=== PATIENT | male | born 1950 | race Caucasian/White ===

== ENCOUNTER 2017-10-24 07:30 | Day surgery (SDC) | payer OTHER ==
[~2017-10-24 07:30] MED LIST: ceFAZolin 2 GM/SWFI 2 GM/20 ML SYR IVP ONE
[2017-10-24] MEDS ORDERED: BUPIVACAINE 0.5% 30 ML SDV ONE (07:36)
[2017-10-24] MEDS ORDERED: LR 1,000 ML IV ONE (08:07)
[2017-10-24] MEDS ORDERED: ceFAZolin 2 GM/SWFI 2 GM/20 ML SYR IVP ONE (08:07)
--- NOTE | 2017-10-24 10:24 | PDANEPAE ---
ANE History of Present Illness Patient presents for inguinal hernia repair. ANE Past Medical History - Cardiovascular History Hx Hypertension: Yes Hx Coronary Artery / Peripheral Vascular Disease: Yes Cardiovascular History Comment: HYPERLIPIDEMIA. CABG 01/2016 - Pulmonary History Hx COPD: No Hx Asthma/Reactive Airway Disease: No Hx Recent Upper Respiratory Infection: No Hx Oxygen in Use at Home: No Hx Sleep Apnea: No Sleep Apnea Screening Result - Last Documented: Negative - Neurologic History Hx Cerebrovascular Accident: No Hx Seizures: No Hx Dementia: No - Endocrine History Hx Diabetes: No - Renal History Hx Renal Disorders: No - Liver History Hx Hepatic Disorders: No - Neurological & Psychiatric Hx Hx Neurological and Psychiatric Disorders: No - Cancer History Hx Cancer: No - Congenital Disorder History Hx Congenital Disorders: No - GI History Hx Gastrointestinal Disorders: No - Other Health History Other Health History: NEG - Chronic Pain History Chronic Pain: Yes (ARTHRITIS L KNEE) - Surgical History Prior Surgeries: CABG 01/2016. HERNIA ANE Review of Systems Review of Systems: - Exercise capacity METS (RN): 5 METS ANE Patient History - Allergies Allergies/Adverse Reactions: sulfamethoxazole [From Bactrim] Allergy (Verified 10/24/17 08:20) trimethoprim [From Bactrim] Allergy (Verified 10/24/17 08:20) - Home Medications Home Medications: Aspirin [Aspirin 81mg (*)] 81 mg PO DAILY 01/26/16 [Last Taken 10/19/17] Gabapentin [Neurontin 300 MG (*)] 300 mg PO HS PRN 01/26/16 [Last Taken 10/22/17 ] Herbals/Supplements -Info Only 1 ea PO DAILY 01/26/16 [Last Taken 10/23/17] Lisinopril 10/17/17 [Last Taken 10/21/17] - NPO status NPO Since - Liquids (Date): 10/23/17 NPO Since - Liquids (Time): 22:30 NPO Since - Solids (Date): 10/23/17 NPO Since - Solids (Time): 22:30 - Smoking Hx Smoking Status: Never smoked - Family Anes Hx Family Hx Anesthesia Complications: NEG ANE Labs/Vital Signs - Vital Signs Blood Pressure: 145/65 Heart Rate: 65 Respiratory Rate: 17 O2 Sat (%): 95 Height: 187.96 cm Weight: 83.915 kg ANE Physical Exam - Airway Mallampati Score: Class 2 Mouth exam: normal dental/mouth exam - Pulmonary Pulmonary: no respiratory distress - Cardiovascular Cardiovascular: regular rate and rhythym - ASA Status ASA Status: III ANE Anesthesia Plan Anesthesia Plan: general endotracheal anesthesia (rba discussed)
[2017-10-24] MEDS ORDERED: fentaNYL 100 MCG/2 ML INJ ONE ×2 (10:35→11:08)
[2017-10-24] MEDS ORDERED: PROPOFOL 200 MG/20 ML VIAL ONE ×2 (10:35→11:02)
[2017-10-24] MEDS ORDERED: SUCCINYLCHOLINE CHLORIDE 200 MG/10 ML SYR IVP ONE (10:35)
[2017-10-24] MEDS ORDERED: LIDOCAINE 2% 5 ML SDV ONE (10:35)
--- NOTE | 2017-10-24 10:39 | PDHPUP ---
History & Physical Update H&P update statement: This history and physical update is based on an assessment of the patient which was completed after admission or registration (within 24 hours), but prior to the surgery/procedure.
[2017-10-24] MEDS ORDERED: DEXAMETHASONE 4 MG/ML VIAL ONE (10:58)
[2017-10-24] MEDS ORDERED: ATROPINE SULFATE 1 MG/ML VIAL ONE (11:19)
--- NOTE | 2017-10-24 12:00 | POSTOPPROG ---
Post Op Note Date of Operation: 10/24/17 Surgeon: Daniel Vázquez Anesthesiologist: jesika Anesthesia: GET(General Endotracheal) Pre-op Diagnosis: recurrent lih and rih, small umbilical hernia Post-op Diagnosis: same Indication: pain Procedure: lap bih, recurrent left/ open umbilical hernia repair Findings: bilateral direct ingunal hernias, recurrent left/ small 1 cm umbilical defe Inf/Abcess present in the surg proc area at time of surgery?: No Depth: Organ Space EBL: Minimal Complications: 0
[2017-10-24] MEDS ORDERED: ONDANSETRON 4 MG/2 ML VIAL IVP PRN ×2 (12:01→12:07)
[2017-10-24] MEDS ORDERED: OXYCODONE/APAP 5/325 TAB PO PRN ×2 (12:01→12:07)
[2017-10-24] MEDS ORDERED: fentaNYL 100 MCG/2 ML INJ IVP PRN (12:07)
[2017-10-24] MEDS ORDERED: HYDROCODONE/APAP 5/325 TAB PO PRN (12:07)
[2017-10-24] MEDS ORDERED: LR 500 ML IV PRN (12:07)
[2017-10-24] MEDS ORDERED: NALOXONE HCL 0.4 MG/ML INJ IVP PRN (12:07)
--- NOTE | 2017-10-24 12:08 | POSTANESTH ---
Post Anesthetic Evaluation Cardiovascular Status: Similar to Pre-Op Cond Respiratory Status: Similar to Pre-op Cond. Level of Consciousness/Mental Status: Can Participate in Eval Pain Control: Adequate, Prn Tx Ordered Nausea/Vomiting Control: Adequate, Prn Tx Ordered Complications Possibly Related to Anesthesia: None Noted
[2017-10-24 12:28] VITALS: O2SAT 96
[2017-10-24 13:09] VITALS: RESP 16
[2017-10-24 13:47] VITALS: BP 146/84; PULSE 61; TEMP 97
--- NOTE | 2017-10-29 13:12 | GOP ---
[f rep st] OPERATIVE REPORT DATE OF OPERATION: 10/24/2017 SURGEON: Daniel Vázquez MD ANESTHESIOLOGIST: Dr. Burnette. PREOPERATIVE DIAGNOSIS: Bilateral inguinal hernias and a small umbilical hernia. POSTOPERATIVE DIAGNOSIS: Bilateral inguinal hernias and a small umbilical hernia. PROCEDURE PERFORMED: Laparoscopic bilateral inguinal hernia repairs and an open umbilical hernia rep air. FINDINGS: The patient was found to have bilateral direct inguinal hernia defects. This is recurrent on the left. He also had a less than 1 cm umbilical hernia defect. DESCRIPTION OF PROCEDURE: The patient was taken to the operating room, where he received satisfactor y general endotracheal anesthesia by Dr. Burnette. He was placed in a supine position, prepped and drap ed in the usual sterile fashion. Infraumbilical incision was made. Dissection was carried to the re ctus sheath which was incised. A subfascial tunnel was developed in the preperitoneal space that was dissected free with a balloon dissector which was replaced with CO2 insufflation trocar. Two other trocars were placed in the lower midline under direct vision. Beltran's ligament was exposed bilatera lly. The cords were mobilized bilaterally. There were no indirect sacs. On the left, there was a m oderate direct defect which was incarcerated and recurrent. This was carefully dissected free and re duced. The contents appeared to be omental tissue. On the right side, a small direct defect was enc ountered. There were no indirect sacs. Bilateral Covidien polyester mesh patches were placed over t he inguinal floors on either side and anchored in place using the AbsorbaTack, securing it to Beltran ligament, the lacunar ligament, the anterior abdominal wall, and the lateral abdominal wall outside t he internal ring. Hemostasis was assured. Trocars removed under direct vision and pneumopreperitone um was released. The insertion site was closed with 0 Vicryl [id number] sutures. Attention was turned to the umbilical hernia. The sac was dissected free from the skin of the umbilicus and the s urrounding subcutaneous tissue. The sac was opened, its contents reduced, and the defect was closed with 0 Surgilon [id number] sutures. The defect itself was less than a cm. Wounds were infiltra paul with 0.5% Marcaine. Subcu was closed with 3-0 Vicryl and the skin with a 4-0 Monocryl subcuticul ar stitch. He tolerated the procedure well. He was taken to the recovery room in good condition. T here were no complications. /[id number]/MODL
== END 2017-10-24 13:47 | disposition home or self-care (01) ==
LOC: FSGY 07:30
PROVIDERS: ATTEND Surgery
PROC: 0YQA0ZZ Repair Bilateral Inguinal Region, Open Approach (ICD-10-PCS; principal; 2017-10-24 09:00)
PROC: 0WQF0ZZ Repair Abdominal Wall, Open Approach (ICD-10-PCS; principal; 2017-10-24 09:00)
DX: K40.21 Bilateral inguinal hernia, without obstruction or gangrene, recurrent (principal); K42.9 Umbilical hernia without obstruction or gangrene; I25.10 Atherosclerotic heart disease of native coronary artery without angina pectoris; E78.5 Hyperlipidemia, unspecified; I73.00 Raynaud's syndrome without gangrene; Z95.1 Presence of aortocoronary bypass graft
CPT/HCPCS: C1727; C1781; J0330; J0461; J0690; J1100; J2704; J3010